=== PATIENT | female | born 1955 | race Caucasian/White ===

== ENCOUNTER → 2016-06-03 | Outpatient (CLI) | payer OTHER ==
[~2016-06-03] MED LIST: AUGMENTIN 875 M1 TAB PO; AUGMENTIN 875875 MG PO; COZAAR100 MG PO; CYMBALTA20 MG PO; DIOVAN160 MG PO; ESTRACE1 M1 PO; FLONASE 0.05% 121 EA NAS; LASIX20 MG PO; LODINE400 MG PO; PHENERGAN W/DM120 ML PO; PREDNICOT10 MG PO; SYNTHROID0.112 MG PO; TRAMADOL HCL50 MG PO; TRAZADONE HYDR100 MG PO; ULTRAM50 MG PO; VIBRAMYCIN100 MG PO; ZEBETA10 MG PO
== END | disposition home or self-care (01) ==
LOC: US 08:01
DX: R10.11 Right upper quadrant pain (principal); K80.20 Calculus of gallbladder without cholecystitis without obstruction

== ENCOUNTER → 2016-08-24 | Outpatient (CLI) | payer OTHER | END | disposition home or self-care (01) | LOC: RAD 11:12 | DX: M85.89 Other specified disorders of bone density and structure, multiple sites (principal) ==

== ENCOUNTER → 2016-09-07 | Outpatient (CLI) | payer OTHER ==
[~2016-09-07] VITALS: Ht 154.9 cm; Wt 82.6 kg
[~2016-09-07] MED LIST changes: -CYMBALTA20 MG PO; +CYMBALTA60 MG PO; +DITROPAN XL10 MG PO; +GOOD NEIGHBOR L10 MG PO; +MULTIPLE VITAMI1 T25 PO; +NABUMETONE500 M2 PO; +NOVAPLUS V0.09 MG/Ac INH; +OMEPRAZOLE D/R20 MG PO; +Oscal,Oyster S500 MG PO; +PRAVASTATIN SOD20 MG PO; +TOPAMAX100 M1 PO
== END | disposition home or self-care (01) ==
LOC: SDC 09:30 → CARD 09:43 → SDC 09-14 02:16 → EDSTATUS 09-14 09:30 → SDC 09-14 09:30
DX: K80.80 Other cholelithiasis without obstruction (principal)

== ENCOUNTER → 2016-09-07 | Outpatient (CLI) | payer OTHER ==
[~2016-09-07] MED LIST changes: -Oscal,Oyster S500 MG PO
[2016-09-07 11:06] LABS: BASO # 0.1 10*3/uL (0.0-0.1); BASO % 1.4 % (0.0-1.0); EOS # 0.2 10*3/uL (0.0-0.4); EOS % 3.4 % (1.0-4.0); HEMOGLOBIN 12.3 g/dl (12.0-16.0); LYMPH # 1.3 10*3/uL (1.3-4.4); LYMPH % 29.4 % (27.0-41.0); MEAN CORPUSCULAR HGB 27.8 pg (27.0-31.0); MEAN CORPUSCULAR HGB CONC 32.4 g/dl (33.0-37.0); MEAN PLATELET VOLUME 9.1 fl (9.6-12.3); MONO # 0.5 10*3/uL (0.1-1.0); MONO % 11.2 % (3.0-9.0); NEUT # 2.4 10*3/uL (2.3-7.9); NEUT % 54.4 % (47.0-73.0); PLATELET COUNT AUTOMATED 235 10*3/uL (130-400); RED BLOOD COUNT 4.42 10*6/uL (4.10-5.10); RED CELL DISTRI WIDTH 13.7 % (0-14.5); WHITE BLOOD COUNT 4.4 10*3/uL (4.8-10.8)
[2016-09-07 11:07] LABS: BILIRUBIN NEGATIVE (NEGATIVE); BLOOD NEGATIVE (NEGATIVE); CLARITY CLEAR (CLEAR); COLOR YELLOW (YELLOW); GLUCOSE NEGATIVE (NEGATIVE); KETONE NEGATIVE (NEGATIVE); LEUKO ESTERASE NEGATIVE (NEGATIVE); NITRITE NEGATIVE (NEGATIVE); PROTEIN NEGATIVE (NEGATIVE); SPECIFIC GRAVITY 1.015 (1.005-1.030); UROBILINOGEN 0.2 E.U./dl (0.2-1.0)
[2016-09-07 11:12] LABS: RBC 0-2 rbc/hpf (0-2); WBC 0-2 wbc/hpf (0-5)
[2016-09-07 11:49] LABS: ALBUMIN 3.4 gm/dl (3.1-4.5); ALKALINE PHOSPHATASE 100 U/L (45-117); BILIRUBIN, DIRECT < 0.1 mg/dL (0.0-0.2); BILIRUBIN, TOTAL 0.4 mg/dl (0.2-1.0); BUN 21 mg/dl (7-24); CARBON DIOXIDE 28 mmol/L (21-32); CHLORIDE 105 mmol/L (98-107); EST GLOM FILT AFRICAN AMERICAN > 60 ml/min; GLUCOSE 95 mg/dL (65-99); POTASSIUM 4.7 mmol/L (3.5-5.1); SGOT/AST 10 IU/L (3-35); SGPT/ALT 19 U/L (12-78); SODIUM 144 mmol/L (136-145); TOTAL PROTEIN 7.4 gm/dL (6.4-8.2)
[2016-09-07 12:06] LABS: PROTHROMBIN TIME 10.3 SECONDS (9.0-12.4)
== END | disposition home or self-care (01) ==
LOC: LAB 09:19
PROVIDERS: Surgery
DX: Z01.818 Encounter for other preprocedural examination (principal); K80.80 Other cholelithiasis without obstruction; J45.909 Unspecified asthma, uncomplicated; I10 Essential (primary) hypertension; R79.1 Abnormal coagulation profile

== ENCOUNTER → 2016-09-26 | Outpatient (CLI) | payer OTHER ==
[~2016-09-26] MED LIST changes: +Oscal,Oyster S500 MG PO
== END | disposition home or self-care (01) ==
LOC: CARD 02:47
DX: I25.10 Atherosclerotic heart disease of native coronary artery without angina pectoris (principal); R53.81 Other malaise

== ENCOUNTER → 2016-11-17 | Outpatient (CLI) | payer OTHER ==
[2016-11-17 11:26] LABS: BASO # 0.1 10*3/uL (0.0-0.1); BASO % 1.5 % (0.0-1.0); EOS # 0.2 10*3/uL (0.0-0.4); EOS % 4.9 % (1.0-4.0); HEMATOCRIT 38.3 % (37.0-47.0); LYMPH % 24.5 % (27.0-41.0); MEAN CELL VOLUME 87.6 fl (81.0-99.0); MEAN CORPUSCULAR HGB 27.5 pg (27.0-31.0); MEAN CORPUSCULAR HGB CONC 31.3 g/dl (33.0-37.0); MEAN PLATELET VOLUME 9.4 fl (9.6-12.3); MONO # 0.4 10*3/uL (0.1-1.0); MONO % 10.5 % (3.0-9.0); NEUT # 2.4 10*3/uL (2.3-7.9); NEUT % 58.4 % (47.0-73.0); PLATELET COUNT AUTOMATED 231 10*3/uL (130-400); RED BLOOD COUNT 4.37 10*6/uL (4.10-5.10); RED CELL DISTRI WIDTH 13.5 % (0-14.5); WHITE BLOOD COUNT 4.1 10*3/uL (4.8-10.8)
[2016-11-17 11:28] LABS: BILIRUBIN NEGATIVE (NEGATIVE); BLOOD NEGATIVE (NEGATIVE); CLARITY SL CLOUDY (CLEAR); COLOR YELLOW (YELLOW); GLUCOSE NEGATIVE (NEGATIVE); KETONE NEGATIVE (NEGATIVE); LEUKO ESTERASE 1+ (NEGATIVE); NITRITE NEGATIVE (NEGATIVE); UROBILINOGEN 0.2 E.U./dl (0.2-1.0)
[2016-11-17 11:47] LABS: BACTERIA 3+
[2016-11-17 12:00] LABS: ALBUMIN 3.5 gm/dl (3.1-4.5); BILIRUBIN, DIRECT < 0.1 mg/dL (0.0-0.2); BUN 19 mg/dl (7-24); CHLORIDE 107 mmol/L (98-107); CREATININE 0.98 mg/dL (0.55-1.02); POTASSIUM 4.1 mmol/L (3.5-5.1); SGOT/AST 14 IU/L (3-35); SGPT/ALT 17 U/L (12-78); SODIUM 139 mmol/L (136-145); TOTAL PROTEIN 7.4 gm/dL (6.4-8.2)
[2016-11-17 12:02] LABS: ALKALINE PHOSPHATASE 102 U/L (45-117)
== END | disposition home or self-care (01) ==
LOC: LAB 10:00
PROVIDERS: Surgery
DX: K80.20 Calculus of gallbladder without cholecystitis without obstruction (principal); J45.909 Unspecified asthma, uncomplicated

== ENCOUNTER → 2016-11-23 | Day surgery (SDC) | payer OTHER ==
[2016-11-17 10:10] VITALS: BP 140/65
[~2016-11-23] VITALS: Ht 167.6 cm; Wt 79.4 kg
[2016-11-23] VITALS (9 sets, daily range): BP systolic 124–164; BP diastolic 62–83
[~2016-11-23] MED LIST changes: +NORCO 5-325 TA1 EACH PO
--- NOTE | ~2016-11-23 | O ---
[place], [place] OPERATIVE NOTE NAME: [id number] UNIT #: [id number] ROOM: DOCTOR: MURRAY GARCIA MD BIRTHDATE: [birth year] DOS: 11/23/2016 PREOPERATIVE DIAGNOSIS: Symptomatic gallstones. POSTOPERATIVE DIAGNOSIS: Symptomatic gallstones. PROCEDURE: Laparoscopic cholecystectomy. SURGEON: Murray Garcia MD PHYSICIAN ANESTHESIOLOGIST: [id number]. ANESTHESIA: General with endotracheal intubation. INDICATIONS: This is a 61-year-old lady with a longstanding history of symptomatic gallstones, who is here for the above-mentioned procedure. The procedure and its complications were explained to the patient in detail preoperatively. Complications that were discussed included but were not limited to bleeding, infection, hematoma/seroma/abscess formation, prolonged postoperative pain, damage to underlying vital structures, inadvertent injury to the common bile duct, incisional hernia formation and biloma formation, she agreed to proceed. DESCRIPTION OF PROCEDURE: After identifying the patient, the patient was brought to the operating suite and laid in the supine position. After induction of general anesthesia, a timeout procedure was called and the parts were then painted and draped in the usual sterile fashion. An incision in a transverse fashion was made in the subumbilical region. The skin and the subcutaneous tissue were incised. The fascia was incised vertically and 2 stay sutures with 0 Vicryl were taken on either side. The peritoneum was opened and a 15 mm Shorty port was introduced into the peritoneal cavity. A pneumoperitoneum was created. Under direct vision, an epigastric incision of 10 mm and two 5 mm incisions were made in the right upper quadrant and appropriate sized ports were introduced. The gallbladder was retracted superiorly and laterally. The cystic duct and the cystic artery were meticulously dissected until the critical view of safety was obtained. Thereafter, each of these structures were clipped 3 times and cut between the first and the second clip. The gallbladder was then removed from the bed of the gallbladder with the help of electrocautery. It was placed in an EndoCatch bag and removed from the peritoneal cavity and sent for histopathological diagnosis. Thereafter, hemostasis was confirmed in the liver bed and piece of Surgicel was placed in order to expedite the hemostasis. The saline was used for irrigation and after hemostasis was confirmed, the right upper quadrant and epigastric ports were removed and there was no bleeding seen. The umbilical port was also removed and the pneumoperitoneum was decompressed and the 2 stay sutures were tied together. Local anesthesia (1% plain lidocaine) was injected in all the 4 incisions and then they were approximated with the help of 4-0 Vicryl in a subcuticular running fashion. Dressing was placed. The patient tolerated the procedure well and was extubated uneventfully and brought back to the recovery room in stable fashion. There were no complications. Dr. Murray Garcia, the attending surgeon, was present throughout [place], [place] OPERATIVE NOTE NAME: GUERITA KHAN UNIT #: [id number] ROOM: DOCTOR: MURRAY GARCIA MD BIRTHDATE: [birth year] the operating case. Murray Garcia MD CM:OPRECORD:OPERATIVE NOTE [id number] MURRAY GARCIA MD 11/23/16 1133 interface
== END | disposition home or self-care (01) ==
LOC: SDC 11-17 09:30
DX: K80.10 Calculus of gallbladder with chronic cholecystitis without obstruction (principal); I25.10 Atherosclerotic heart disease of native coronary artery without angina pectoris; I10 Essential (primary) hypertension; E78.00 Pure hypercholesterolemia, unspecified; M06.9 Rheumatoid arthritis, unspecified; K21.9 Gastro-esophageal reflux disease without esophagitis; F41.9 Anxiety disorder, unspecified; J45.909 Unspecified asthma, uncomplicated; F32.9 Major depressive disorder, single episode, unspecified; E07.9 Disorder of thyroid, unspecified; Z82.49 Family history of ischemic heart disease and other diseases of the circulatory system; Z90.710 Acquired absence of both cervix and uterus; Z98.51 Tubal ligation status; Z88.8 Allergy status to other drugs, medicaments and biological substances; Z98.890 Other specified postprocedural states

== ENCOUNTER → 2016-12-09 | Outpatient (CLI) | payer OTHER | END | disposition home or self-care (01) | LOC: US 09:46 | DX: K76.0 Fatty (change of) liver, not elsewhere classified (principal); I10 Essential (primary) hypertension; J45.909 Unspecified asthma, uncomplicated; Z90.49 Acquired absence of other specified parts of digestive tract; Z87.891 Personal history of nicotine dependence ==

== ENCOUNTER 2017-07-02 17:12 | Emergency (ER) | payer OTHER ==
[~2017-07-02] VITALS: Ht 154.9 cm; Wt 77.1 kg
[2017-07-02 17:17] VITALS: BP 144/75
[2017-07-02 17:27] LABS: BILIRUBIN NEGATIVE (NEGATIVE); BLOOD NEGATIVE (NEGATIVE); CLARITY SL CLOUDY (CLEAR); COLOR YELLOW (YELLOW); GLUCOSE NEGATIVE (NEGATIVE); KETONE NEGATIVE (NEGATIVE); LEUKO ESTERASE NEGATIVE (NEGATIVE); NITRITE POSITIVE (NEGATIVE); PH 5.5 (5.0-9.0); SPECIFIC GRAVITY 1.025 (1.005-1.030); UROBILINOGEN 0.2 E.U./dl (0.2-1.0)
[2017-07-02 17:41] LABS: BACTERIA 3+
[2017-07-02] MEDS ORDERED: PYRIDIUM200 M1 PO (17:45)
[2017-07-02] MEDS ORDERED: ZOFRAN4 MG PO (17:45)
[2017-07-02] MEDS ORDERED: SEPTDS PO (17:45)
== END 2017-07-02 17:56 | disposition home or self-care (01) ==
LOC: ED 17:12
PROVIDERS: Nurse Practitioner Family
DX: N39.0 Urinary tract infection, site not specified (principal); R03.0 Elevated blood-pressure reading, without diagnosis of hypertension; Z90.710 Acquired absence of both cervix and uterus; Z98.890 Other specified postprocedural states; Z98.51 Tubal ligation status; Z88.5 Allergy status to narcotic agent; Z88.6 Allergy status to analgesic agent; Z79.899 Other long term (current) drug therapy

== ENCOUNTER → 2017-12-06 | Outpatient (CLI) | payer OTHER ==
[~2017-12-06] MED LIST changes: +PYRIDIUM200 M1 PO; +SEPTDS PO; +ZOFRAN4 MG PO
== END | disposition home or self-care (01) ==
LOC: CARD 03:28
DX: R01.1 Cardiac murmur, unspecified (principal)

== ENCOUNTER → 2018-05-15 | Outpatient (CLI) | payer OTHER | END | disposition home or self-care (01) | LOC: US 01:12 | DX: I12.9 Hypertensive chronic kidney disease with stage 1 through stage 4 chronic kidney disease, or unspecified chronic kidney disease (principal); N18.3 Chronic kidney disease, stage 3 (moderate) ==

== ENCOUNTER → 2019-01-01 | Outpatient (CLI) | payer MEDICARE, MEDICAID | END | disposition home or self-care (01) | LOC: RAD 10:40 | DX: M43.16 Spondylolisthesis, lumbar region (principal) ==

== ENCOUNTER → 2019-07-04 | Outpatient (CLI) | payer MEDICARE, MEDICAID | END | disposition home or self-care (01) | LOC: US 08:23 | DX: M54.9 Dorsalgia, unspecified (principal); M10.9 Gout, unspecified; Z90.49 Acquired absence of other specified parts of digestive tract ==

== ENCOUNTER → 2019-10-17 | Outpatient (CLI) | payer MEDICARE, MEDICAID ==
[2019-10-17 11:53] LABS: BASO # 0.1 10*3/uL (0.0-0.1); BASO % 1.6 % (0.0-1.0); EOS # 0.2 10*3/uL (0.0-0.4); EOS % 4.6 % (1.0-4.0); HEMATOCRIT 39.9 % (37.0-47.0); LYMPH # 1.2 10*3/uL (1.3-4.4); LYMPH % 32.7 % (27.0-41.0); MEAN CORPUSCULAR HGB 27.6 pg (27.0-31.0); MEAN CORPUSCULAR HGB CONC 32.1 g/dl (33.0-37.0); MEAN PLATELET VOLUME 9.6 fl (9.6-12.3); MONO # 0.4 10*3/uL (0.1-1.0); MONO % 11.1 % (3.0-9.0); NEUT # 1.9 10*3/uL (2.3-7.9); PLATELET COUNT AUTOMATED 218 10*3/uL (130-400); RED BLOOD COUNT 4.64 10*6/uL (4.10-5.10); RED CELL DISTRI WIDTH 13.9 % (0-14.5); WHITE BLOOD COUNT 3.7 10*3/uL (4.8-10.8)
[2019-10-17 12:26] LABS: ALBUMIN 3.5 gm/dl (3.1-4.5); CREATININE 1.21 mg/dL (0.55-1.02); POTASSIUM 3.9 mmol/L (3.5-5.1)
[2019-10-17 12:35] LABS: TOTAL PROTEIN 7.5 gm/dL (6.4-8.2)
== END | disposition home or self-care (01) ==
LOC: LAB 10:47 → US 11:00
PROVIDERS: Nurse Practitioner Primary Care
DX: I10 Essential (primary) hypertension (principal); E78.2 Mixed hyperlipidemia; E55.9 Vitamin D deficiency, unspecified; R10.2 Pelvic and perineal pain; M54.9 Dorsalgia, unspecified

== ENCOUNTER → 2020-07-08 | Outpatient (CLI) | payer MEDICARE, MEDICAID | END | disposition home or self-care (01) | LOC: RAD 12:36 | PROVIDERS: ATTEND Nurse Practitioner Primary Care | DX: J43.9 Emphysema, unspecified (principal); M54.9 Dorsalgia, unspecified; Z90.49 Acquired absence of other specified parts of digestive tract ==

== ENCOUNTER → 2020-07-29 | Outpatient (CLI) | payer MEDICARE | END | disposition home or self-care (01) | LOC: CT 07-28 14:20 | PROVIDERS: ATTEND Nurse Practitioner Primary Care | DX: K57.30 Diverticulosis of large intestine without perforation or abscess without bleeding (principal) ==

== ENCOUNTER → 2020-09-16 | Outpatient (CLI) | payer MEDICARE | END | disposition home or self-care (01) | LOC: CARD 00:53 | PROVIDERS: ATTEND Internal Medicine Cardiovascular Disease | DX: I08.0 Rheumatic disorders of both mitral and aortic valves (principal) ==

== ENCOUNTER 2021-07-28 16:03 | Emergency (ER) | payer MEDICARE ==
[2021-07-28 16:12] VITALS: BP 166/94
[2021-07-28] MEDS ORDERED: TOPIRAMATE100 M2 PO (16:26)
[2021-07-28] MEDS ORDERED: VITAMIN D350 MC2 PO (16:26)
[2021-07-28] MEDS ORDERED: OMEPRAZOLE40 MG PO (16:26)
[2021-07-28] MEDS ORDERED: LEVOTHYROXINE75 MCG PO (16:27)
[2021-07-28] MEDS ORDERED: AMOX-CLAV 875-1 EACH PO (16:28)
[2021-07-28] MEDS ORDERED: NYSTATIN CREAM15 GM T (16:29)
[2021-07-28] MEDS ORDERED: ATORVASTATIN CA20 M1 PO (16:29)
[2021-07-28] MEDS ORDERED: CETIRIZINE HYDR10 MG PO (16:29)
[2021-07-28 17:07] LABS: BASO % 0.7 % (0.0-1.0); EOS # 0.1 10*3/uL (0.0-0.4); EOS % 1.7 % (1.0-4.0); HEMATOCRIT 38.5 % (37.0-47.0); LYMPH # 1.4 10*3/uL (1.3-4.4); LYMPH % 23.4 % (27.0-41.0); MEAN CELL VOLUME 85.6 fl (81.0-99.0); MEAN CORPUSCULAR HGB 28.2 pg (27.0-31.0); MEAN PLATELET VOLUME 9.2 fl (9.6-12.3); MONO # 0.9 10*3/uL (0.1-1.0); MONO % 16.3 % (3.0-9.0); NEUT # 3.3 10*3/uL (2.3-7.9); NEUT % 57.6 % (47.0-73.0); PLATELET COUNT AUTOMATED 223 10*3/uL (130-400); RED CELL DISTRI WIDTH 13.9 % (0-14.5); WHITE BLOOD COUNT 5.8 10*3/uL (4.8-10.8)
[2021-07-28 17:28] LABS: ALKALINE PHOSPHATASE 117 U/L (45-117); BUN 14 mg/dl (7-24); CHLORIDE 109 mmol/L (98-107); CREATININE 1.09 mg/dL (0.55-1.02); LIPASE 74 U/L (73-393); POTASSIUM 3.8 mmol/L (3.5-5.1); SGOT/AST 15 IU/L (3-35); SGPT/ALT 21 U/L (12-78); SODIUM 140 mmol/L (136-145); TOTAL PROTEIN 7.4 gm/dL (6.4-8.2)
[2021-07-28 18:22] LABS: BILIRUBIN Negative (Negative); BLOOD Negative (Negative); CLARITY Clear (Clear); COLOR Yellow (Yellow); GLUCOSE Negative (Negative); KETONE Negative (Negative); LEUKO ESTERASE 1+ (Negative); NITRITE Negative (Negative); PH 7.5 (4.5-8.0)
[2021-07-28 18:30] LABS: BACTERIA TRACE; EPITHELIAL CELLS 21-30; WBC 0-2 wbc/hpf (0-5); YEAST 2+
== END 2021-07-28 20:18 | disposition home or self-care (01) ==
LOC: ED 16:03
PROVIDERS: Physician Assistant
DX: M54.9 Dorsalgia, unspecified (principal); R10.9 Unspecified abdominal pain; Z88.1 Allergy status to other antibiotic agents; Z88.8 Allergy status to other drugs, medicaments and biological substances; Z79.899 Other long term (current) drug therapy; Z90.710 Acquired absence of both cervix and uterus; Z98.51 Tubal ligation status

== ENCOUNTER → 2021-08-19 | Outpatient (CLI) | payer MEDICARE ==
[~2021-08-19] MED LIST changes: +AMOX-CLAV 875-1 EACH PO; +ATORVASTATIN CA20 M1 PO; +CETIRIZINE HYDR10 MG PO; +LEVOTHYROXINE75 MCG PO; +NYSTATIN CREAM15 GM T; +OMEPRAZOLE40 MG PO; +TOPIRAMATE100 M2 PO; +VITAMIN D350 MC2 PO
[2021-08-19 08:52] LABS: BASO # 0.1 10*3/uL (0.0-0.1); BASO % 1.9 % (0.0-1.0); EOS # 0.2 10*3/uL (0.0-0.4); HEMATOCRIT 39.8 % (37.0-47.0); LYMPH % 28.8 % (27.0-41.0); MEAN CELL VOLUME 86.9 fl (81.0-99.0); MEAN CORPUSCULAR HGB 28.4 pg (27.0-31.0); MEAN CORPUSCULAR HGB CONC 32.7 g/dl (33.0-37.0); MEAN PLATELET VOLUME 9.5 fl (9.6-12.3); MONO # 0.4 10*3/uL (0.1-1.0); MONO % 11.1 % (3.0-9.0); NEUT # 1.9 10*3/uL (2.3-7.9); NEUT % 52.9 % (47.0-73.0); PLATELET COUNT AUTOMATED 221 10*3/uL (130-400); RED BLOOD COUNT 4.58 10*6/uL (4.10-5.10); RED CELL DISTRI WIDTH 14.1 % (0-14.5); WHITE BLOOD COUNT 3.6 10*3/uL (4.8-10.8)
[2021-08-19 09:06] LABS: CREATININE 1.29 mg/dL (0.55-1.02); POTASSIUM 3.8 mmol/L (3.5-5.1)
[2021-08-19 09:21] LABS: BILIRUBIN Negative (Negative); BLOOD Trace-Lysed (Negative); CLARITY Cloudy (Clear); COLOR Yellow (Yellow); GLUCOSE Negative (Negative); KETONE Trace (Negative); LEUKO ESTERASE 3+ (Negative); NITRITE Positive (Negative); PH 5.5 (4.5-8.0)
[2021-08-19 11:20] LABS: BACTERIA 4+; WBC TNTC wbc/hpf (0-5)
== END | disposition home or self-care (01) ==
LOC: LAB 08:34
PROVIDERS: ATTEND Internal Medicine Nephrology
DX: N18.30 Chronic kidney disease, stage 3 unspecified (principal); Z79.899 Other long term (current) drug therapy

== ENCOUNTER → 2022-02-15 | Outpatient (CLI) | payer MEDICARE ==
[2022-02-15 11:42] LABS: BASO # 0.1 10*3/uL (0.0-0.1); BASO % 1.5 % (0.0-1.0); EOS # 0.2 10*3/uL (0.0-0.4); EOS % 4.2 % (1.0-4.0); HEMATOCRIT 40.6 % (37.0-47.0); LYMPH # 1.4 10*3/uL (1.3-4.4); LYMPH % 33.8 % (27.0-41.0); MEAN CORPUSCULAR HGB 28.4 pg (27.0-31.0); MEAN PLATELET VOLUME 9.5 fl (9.6-12.3); MONO # 0.4 10*3/uL (0.1-1.0); NEUT % 50.3 % (47.0-73.0); PLATELET COUNT AUTOMATED 262 10*3/uL (130-400); RED BLOOD COUNT 4.72 10*6/uL (4.10-5.10); RED CELL DISTRI WIDTH 14.4 % (0-14.5)
[2022-02-15 11:43] LABS: BILIRUBIN Negative (Negative); BLOOD Negative (Negative); CLARITY Cloudy (Clear); COLOR Yellow (Yellow); GLUCOSE Negative (Negative); KETONE Negative (Negative); LEUKO ESTERASE 2+ (Negative); NITRITE Negative (Negative)
[2022-02-15 11:50] LABS: POTASSIUM 4.3 mmol/L (3.4-5.1)
[2022-02-15 11:58] LABS: CREATININE 1.15 mg/dL (0.55-1.02)
[2022-02-15 12:05] LABS: BACTERIA 4+; EPITHELIAL CELLS 21-30; WBC 16-20 wbc/hpf (0-5)
[2022-02-15 12:10] LABS: URINE CREATININE RANDOM 88.6 mg/dL
[2022-02-15 12:17] LABS: VITAMIN D, 25-HYDROXY 50.6 ng/mL (30-100)
== END | disposition home or self-care (01) ==
LOC: LAB 10:42
PROVIDERS: ATTEND Internal Medicine Nephrology
DX: N18.31 Chronic kidney disease, stage 3a (principal); N25.81 Secondary hyperparathyroidism of renal origin; Z79.899 Other long term (current) drug therapy

== ENCOUNTER → 2022-05-08 | Outpatient (CLI) | payer MEDICARE | LOC: RAD 04-28 00:17 | PROVIDERS: ATTEND Nurse Practitioner Primary Care | DX: M85.852 Other specified disorders of bone density and structure, left thigh (principal); Z78.0 Asymptomatic menopausal state ==

== ENCOUNTER → 2022-06-19 | Outpatient (CLI) | payer MEDICARE | END | disposition home or self-care (01) | LOC: CARD 10:30 | PROVIDERS: ATTEND Nurse Practitioner Primary Care | DX: R06.02 Shortness of breath (principal); R60.9 Edema, unspecified ==

== ENCOUNTER → 2022-09-18 | Outpatient (CLI) | payer MEDICARE ==
[2022-09-18 08:34] LABS: BASO # 0.1 10*3/uL (0.0-0.1); BASO % 1.8 % (0.0-1.0); EOS # 0.3 10*3/uL (0.0-0.4); EOS % 7.9 % (1.0-4.0); HEMATOCRIT 40.5 % (37.0-47.0); LYMPH # 1.2 10*3/uL (1.3-4.4); LYMPH % 31.1 % (27.0-41.0); MEAN CORPUSCULAR HGB 28.5 pg (27.0-31.0); MEAN CORPUSCULAR HGB CONC 32.3 g/dl (33.0-37.0); MEAN PLATELET VOLUME 9.2 fl (9.6-12.3); MONO # 0.4 10*3/uL (0.1-1.0); MONO % 10.5 % (3.0-9.0); NEUT # 1.9 10*3/uL (2.3-7.9); NEUT % 48.4 % (47.0-73.0); PLATELET COUNT AUTOMATED 214 10*3/uL (130-400); RED CELL DISTRI WIDTH 14.3 % (0-14.5); WHITE BLOOD COUNT 3.9 10*3/uL (4.8-10.8)
[2022-09-18 09:00] LABS: BILIRUBIN Negative (Negative); BLOOD Negative (Negative); CLARITY Cloudy (Clear); COLOR Yellow (Yellow); GLUCOSE Negative (Negative); KETONE Trace (Negative); LEUKO ESTERASE 3+ (Negative); NITRITE Positive (Negative); PH 5.5 (4.5-8.0); SPECIFIC GRAVITY 1.015 (1.001-1.030)
[2022-09-18 09:08] LABS: URINE CREATININE RANDOM 180.17 mg/dL
[2022-09-18 09:14] LABS: POTASSIUM 3.8 mmol/L (3.4-5.1)
[2022-09-18 09:19] LABS: VITAMIN D, 25-HYDROXY 60.5 ng/mL (30-100)
[2022-09-18 10:02] LABS: BACTERIA 3+; WBC TNTC wbc/hpf (0-5)
== END | disposition home or self-care (01) ==
LOC: LAB 08:07
PROVIDERS: ATTEND Internal Medicine Nephrology
DX: N18.31 Chronic kidney disease, stage 3a (principal); N25.81 Secondary hyperparathyroidism of renal origin; Z79.899 Other long term (current) drug therapy

== ENCOUNTER → 2022-10-10 | Outpatient (CLI) | payer MEDICARE ==
[2022-10-10 08:32] LABS: BASO # 0.1 10*3/uL (0.0-0.1); BASO % 1.8 % (0.0-1.0); EOS # 0.3 10*3/uL (0.0-0.4); EOS % 6.6 % (1.0-4.0); HEMATOCRIT 41.2 % (37.0-47.0); LYMPH # 1.6 10*3/uL (1.3-4.4); LYMPH % 34.9 % (27.0-41.0); MEAN CELL VOLUME 86.6 fl (81.0-99.0); MEAN CORPUSCULAR HGB 28.6 pg (27.0-31.0); MEAN PLATELET VOLUME 9.2 fl (9.6-12.3); MONO # 0.4 10*3/uL (0.1-1.0); MONO % 9.3 % (3.0-9.0); NEUT # 2.1 10*3/uL (2.3-7.9); NEUT % 47.2 % (47.0-73.0); PLATELET COUNT AUTOMATED 227 10*3/uL (130-400); RED BLOOD COUNT 4.76 10*6/uL (4.10-5.10); RED CELL DISTRI WIDTH 14.1 % (0-14.5); WHITE BLOOD COUNT 4.5 10*3/uL (4.8-10.8)
[2022-10-10 09:26] LABS: POTASSIUM 3.9 mmol/L (3.4-5.1); TOTAL PROTEIN 7.1 gm/dL (6.0-8.0)
== END | disposition home or self-care (01) ==
LOC: LAB 08:07
PROVIDERS: ATTEND Nurse Practitioner Primary Care
DX: I10 Essential (primary) hypertension (principal); E78.2 Mixed hyperlipidemia; E55.9 Vitamin D deficiency, unspecified; E03.8 Other specified hypothyroidism

== ENCOUNTER → 2022-11-13 | Outpatient (CLI) | payer MEDICARE | END | disposition home or self-care (01) | LOC: CT 10:00 | PROVIDERS: ATTEND Nurse Practitioner Adult Health | DX: K57.30 Diverticulosis of large intestine without perforation or abscess without bleeding (principal); N26.1 Atrophy of kidney (terminal); N39.0 Urinary tract infection, site not specified; M47.816 Spondylosis without myelopathy or radiculopathy, lumbar region ==

== ENCOUNTER 2023-01-07 07:12 | Emergency (ER) | payer MEDICARE ==
[~2023-01-07] VITALS: Ht 154.9 cm; Wt 80.7 kg
[2023-01-07 07:21] VITALS: BP 154/56
[2023-01-07 08:01] LABS: EOS # 0.1 10*3/uL (0.0-0.4); EOS % 2.9 % (1.0-4.0); HEMATOCRIT 39.6 % (37.0-47.0); LYMPH # 0.8 10*3/uL (1.3-4.4); LYMPH % 18.4 % (27.0-41.0); MEAN CELL VOLUME 88.4 fl (81.0-99.0); MEAN CORPUSCULAR HGB 28.3 pg (27.0-31.0); MEAN CORPUSCULAR HGB CONC 32.1 g/dl (33.0-37.0); MEAN PLATELET VOLUME 9.6 fl (9.6-12.3); MONO # 0.4 10*3/uL (0.1-1.0); MONO % 10.5 % (3.0-9.0); NEUT # 2.8 10*3/uL (2.3-7.9); PLATELET COUNT AUTOMATED 210 10*3/uL (130-400); RED BLOOD COUNT 4.48 10*6/uL (4.10-5.10); RED CELL DISTRI WIDTH 14.4 % (0-14.5); WHITE BLOOD COUNT 4.2 10*3/uL (4.8-10.8)
[2023-01-07 08:40] LABS: BILIRUBIN Negative (Negative); BLOOD Negative (Negative); CLARITY Cloudy (Clear); COLOR Yellow (Yellow); GLUCOSE Negative (Negative); KETONE Negative (Negative); LEUKO ESTERASE 3+ (Negative); NITRITE Negative (Negative); SPECIFIC GRAVITY 1.015 (1.001-1.030)
[2023-01-07 08:50] LABS: BACTERIA 3+; EPITHELIAL CELLS 21-30; WBC 31-40 wbc/hpf (0-5)
[2023-01-07 08:51] LABS: ALKALINE PHOSPHATASE 325 U/L (46-116); BUN 13 mg/dl (9-23); CHLORIDE 109 mmol/L (98-107); LIPASE 483 U/L (12-53); SGPT/ALT 319 U/L (5-49)
[2023-01-07] MEDS ORDERED: AMOX-CLAV 875-1 EACH PO (09:04)
[2023-01-07] MEDS ORDERED: PEPCID20 MG PO (09:04)
[2023-01-07] MEDS ORDERED: TRAMADOL HCL50 MG PO (09:04)
== END 2023-01-07 09:20 | disposition home or self-care (01) ==
LOC: ED 07:12
PROVIDERS: Emergency Medicine
DX: K29.70 Gastritis, unspecified, without bleeding (principal); K85.90 Acute pancreatitis without necrosis or infection, unspecified; N39.0 Urinary tract infection, site not specified; I25.10 Atherosclerotic heart disease of native coronary artery without angina pectoris; I10 Essential (primary) hypertension; E78.00 Pure hypercholesterolemia, unspecified; K21.9 Gastro-esophageal reflux disease without esophagitis; F41.9 Anxiety disorder, unspecified; J45.909 Unspecified asthma, uncomplicated; F32.A Depression, unspecified; E03.9 Hypothyroidism, unspecified; Z88.5 Allergy status to narcotic agent; Z88.2 Allergy status to sulfonamides; Z88.8 Allergy status to other drugs, medicaments and biological substances; Z90.710 Acquired absence of both cervix and uterus; Z98.51 Tubal ligation status; Z98.890 Other specified postprocedural states

== ENCOUNTER → 2023-04-03 | Outpatient (CLI) | payer MEDICARE ==
[~2023-04-03] MED LIST changes: +PEPCID20 MG PO
[2023-04-03 09:10] LABS: BASO # 0.1 10*3/uL (0.0-0.1); EOS # 0.1 10*3/uL (0.0-0.4); EOS % 3.1 % (1.0-4.0); HEMATOCRIT 44.7 % (37.0-47.0); LYMPH # 1.4 10*3/uL (1.3-4.4); LYMPH % 37.7 % (27.0-41.0); MEAN CELL VOLUME 89.8 fl (81.0-99.0); MEAN CORPUSCULAR HGB 27.9 pg (27.0-31.0); MEAN CORPUSCULAR HGB CONC 31.1 g/dl (33.0-37.0); MEAN PLATELET VOLUME 9.2 fl (9.6-12.3); MONO # 0.3 10*3/uL (0.1-1.0); MONO % 8.9 % (3.0-9.0); NEUT # 1.7 10*3/uL (2.3-7.9); PLATELET COUNT AUTOMATED 230 10*3/uL (130-400); RED BLOOD COUNT 4.98 10*6/uL (4.10-5.10); RED CELL DISTRI WIDTH 13.4 % (0-14.5); WHITE BLOOD COUNT 3.6 10*3/uL (4.8-10.8)
[2023-04-03 09:20] LABS: BILIRUBIN Negative (Negative); BLOOD Negative (Negative); CLARITY Clear (Clear); COLOR Yellow (Yellow); GLUCOSE Negative (Negative); KETONE Trace (Negative); LEUKO ESTERASE 2+ (Negative); NITRITE Negative (Negative); PH 5.5 (4.5-8.0)
[2023-04-03 09:27] LABS: URINE CREATININE RANDOM 161.87 mg/dL
[2023-04-03 09:34] LABS: BACTERIA 2+; RBC 0-2 rbc/hpf (0-2)
[2023-04-03 09:35] LABS: WBC 41-50 wbc/hpf (0-5)
[2023-04-03 09:47] LABS: POTASSIUM 4.2 mmol/L (3.4-5.1)
[2023-04-03 09:49] LABS: VITAMIN D, 25-HYDROXY 47.9 ng/mL (30-100)
== END | disposition home or self-care (01) ==
LOC: LAB 08:34
PROVIDERS: ATTEND Internal Medicine Nephrology
DX: N18.30 Chronic kidney disease, stage 3 unspecified (principal); N25.81 Secondary hyperparathyroidism of renal origin

== ENCOUNTER → 2023-09-28 | Outpatient (CLI) | payer MEDICARE ==
[2023-09-28 09:07] LABS: BASO # 0.1 10*3/uL (0.0-0.1); BASO % 1.8 % (0.0-1.0); EOS # 0.1 10*3/uL (0.0-0.4); EOS % 3.4 % (1.0-4.0); HEMATOCRIT 42.4 % (37.0-47.0); LYMPH # 1.5 10*3/uL (1.3-4.4); LYMPH % 39.3 % (27.0-41.0); MONO # 0.4 10*3/uL (0.1-1.0); MONO % 9.4 % (3.0-9.0); NEUT # 1.8 10*3/uL (2.3-7.9); NEUT % 46.1 % (47.0-73.0); PLATELET COUNT AUTOMATED 211 10*3/uL (130-400); RED BLOOD COUNT 4.82 10*6/uL (4.10-5.10); RED CELL DISTRI WIDTH 14.4 % (0-14.5); WHITE BLOOD COUNT 3.8 10*3/uL (4.8-10.8)
[2023-09-28 09:45] LABS: BILIRUBIN Negative (Negative); BLOOD Negative (Negative); CLARITY Cloudy (Clear); COLOR Yellow (Yellow); GLUCOSE Negative (Negative); KETONE Negative (Negative); LEUKO ESTERASE 3+ (Negative); NITRITE Positive (Negative)
[2023-09-28 09:52] LABS: URINE CREATININE RANDOM 220.68 mg/dL
[2023-09-28 09:54] LABS: POTASSIUM 4.1 mmol/L (3.4-5.1); TOTAL PROTEIN 7.2 gm/dL (6.0-8.0)
[2023-09-28 09:55] LABS: VITAMIN D, 25-HYDROXY 46.3 ng/mL (30-100)
[2023-09-28 10:24] LABS: BACTERIA 4+; WBC TNTC wbc/hpf (0-5)
== END | disposition home or self-care (01) ==
LOC: LAB 08:19
PROVIDERS: ATTEND Internal Medicine Nephrology
DX: N18.30 Chronic kidney disease, stage 3 unspecified (principal); N25.81 Secondary hyperparathyroidism of renal origin

== ENCOUNTER → 2024-03-26 | Outpatient (CLI) | payer MEDICARE ==
[2024-03-26 09:16] LABS: BILIRUBIN Negative (Negative); BLOOD Negative (Negative); CLARITY Cloudy (Clear); COLOR Yellow (Yellow); GLUCOSE Negative (Negative); KETONE Negative (Negative); LEUKO ESTERASE 3+ (Negative); NITRITE Negative (Negative); PH 6.5 (4.5-8.0); UROBILINOGEN 0.2 E.U./dl (0.0-1.0)
[2024-03-26 09:21] LABS: BASO # 0.1 10*3/uL (0.0-0.1); BASO % 1.7 % (0.0-1.0); EOS # 0.2 10*3/uL (0.0-0.4); EOS % 3.9 % (1.0-4.0); HEMATOCRIT 42.3 % (37.0-47.0); MEAN CELL VOLUME 89.2 fl (81.0-99.0); MEAN CORPUSCULAR HGB 27.6 pg (27.0-31.0); MEAN PLATELET VOLUME 9.7 fl (9.6-12.3); MONO # 0.4 10*3/uL (0.1-1.0); MONO % 9.1 % (3.0-9.0); NEUT # 2.2 10*3/uL (2.3-7.9); PLATELET COUNT AUTOMATED 240 10*3/uL (130-400); RED BLOOD COUNT 4.74 10*6/uL (4.10-5.10); RED CELL DISTRI WIDTH 13.2 % (0-14.5); WHITE BLOOD COUNT 4.1 10*3/uL (4.8-10.8)
[2024-03-26 09:47] LABS: POTASSIUM 4.7 mmol/L (3.4-5.1)
[2024-03-26 09:57] LABS: BACTERIA 2+; EPITHELIAL CELLS 41-50; MUCOUS TRACE; RBC 0-2 rbc/hpf (0-2); WBC 51-100 wbc/hpf (0-5)
[2024-03-26 10:38] LABS: VITAMIN D, 25-HYDROXY 47.3 ng/mL (30-100)
== END | disposition home or self-care (01) ==
LOC: LAB 08:51
PROVIDERS: ATTEND Internal Medicine Nephrology
DX: N18.30 Chronic kidney disease, stage 3 unspecified (principal); N25.81 Secondary hyperparathyroidism of renal origin

== ENCOUNTER → 2024-04-23 | Outpatient (CLI) | payer OTHER | END | disposition home or self-care (01) | LOC: RAD 09:04 | PROVIDERS: ATTEND Nurse Practitioner Primary Care | DX: M79.672 Pain in left foot (principal); M79.89 Other specified soft tissue disorders ==